=== PATIENT | female | born 1995 | race Caucasian/White ===

== ENCOUNTER 2016-05-05 22:57 | Emergency (ER) | payer OTHER ==
[~2016-05-05] VITALS: Ht 160 cm; Wt 49.9 kg
[2016-05-05 23:17] VITALS: BP 111/74
--- NOTE | 2016-05-06 01:12 | ED UPPER/LOWER EXTREMITY COMPL ---
History of Present Illness General Chief Complaint: Laceration Procedure Stated Complaint: RIGHT THUMB LAC Source: patient Exam Limitations: no limitations Vital Signs & Intake/Output Vital Signs & Intake/Output Vital Signs Date Time Temp Pulse Resp B/P Pulse O2 O2 Flow FiO2 Ox Delivery Rate 05/06 0126 98 Room Air 05/05 2317 98.7 99 15 111/74 100 Room Air ED Intake and Output 05/06 0000 05/05 1200 Intake Total Output Total Balance Patient 110 lb Weight Allergies Uncoded Allergies: Med Allergies N Triage Note: PT TO ED FOR SMALL LAC TO TOP OF R THUMB. REPORTS SHE WAS TRYING TO CLEAN A GLASS AND CUT HER THUMB, BLEEDING CONTROLLED ON ARRIVAL - UNSURE OF LAST TETANUS. Triage Nurses Notes Reviewed? yes Onset: Abrupt Duration: minute(s): Timing: single episode today Severity: mild Pain/Injury Location: Right: 1st finger. Method of Injury: incised Modifying Factors: Improves With: rest. Associated Symptoms: bleeding : No Patient currently breastfeeds: No HPI: 20 yo girl presents with right thumb laceration. She notes that she cut right thumb while washing dishes and a glass broke. "It really is bleeding a lot." She notes no other injury. She is able to move her thumb without problem. She flatly declines sutures. Past History Travel History Traveled to [place] past 21 day No Medical History Any Pertinent Medical History? see below for history Neurological: NONE EENT: NONE Cardiovascular: NONE Respiratory: NONE Gastrointestinal: NONE Hepatic: NONE Renal: NONE Musculoskeletal: NONE Psychiatric: NONE Endocrine: NONE Blood Disorders: NONE Cancer(s): NONE Surgical History Surgical History: none Psychosocial History What is your primary language Romanian Tobacco Use: Never used ETOH Use: denies use Illicit Drug Use: denies illicit drug use Family History Hx Contributory? No Review of Systems Review of Systems Constitutional: Reports: no symptoms. EENTM: Reports: no symptoms. Respiratory: Reports: no symptoms. Cardiovascular: Reports: no symptoms. Gastrointestinal/Abdominal: Reports: no symptoms. Genitourinary: Reports: no symptoms. Musculoskeletal: Reports: no symptoms. Skin: Reports: no symptoms. Neurological/Psychological: Reports: no symptoms. Hematologic/Endocrine: Reports: no symptoms. Immunological: Reports: no symptoms. All Other Systems: Reviewed and Negative Physical Exam Physical Exam General Appearance: well developed/nourished, mild distress Head: atraumatic Eyes: Bilateral: normal appearance. Ears, Nose, Throat: normal pharynx, normal ENT inspection, hearing grossly normal Neck: normal inspection, supple Cardiovascular/Respiratory: regular rate/rhythm Back: normal inspection Hand Right: 2 cm laceration, flap, with slowly oozing blood. Skin: intact, normal color, warm/dry Lymphatic: no anterior cervical iram Progress Differential Diagnosis: abrasion vs laceration Plan of Care: Pt declines sutures. right thumb 2cm flap laceration. Wound cleansed with 100cc of water.... dermabond and steri strips placed with excellent result... thumb placed in splint by MD. Departure Departure Disposition: HOME OR SELF CARE Condition: Stable Clinical Impression Primary Impression: Thumb laceration Referrals: BORIS STEVENS MD (PCP/Family) Departure Forms: Customer Survey General Discharge Information Comments tetanus given in ed.
== END 2016-05-06 01:28 ==
LOC: ERH 22:57
DX: S61.011A Laceration without foreign body of right thumb without damage to nail, initial encounter (principal); W25.XXXA Contact with sharp glass, initial encounter
CPT/HCPCS: 90714

== ENCOUNTER 2016-05-07 19:07 | Emergency (ER) | payer OTHER ==
[~2016-05-07] VITALS: Ht 160 cm; Wt 49.9 kg
[2016-05-07 19:11] VITALS: BP 117/75
--- NOTE | 2016-05-07 19:20 | ED HAND/WRIST INJURY COMPLAINT ---
History of Present Illness General Chief Complaint: Suture Removal/Wound Recheck Stated Complaint: WOUND CHECK, TOLD TO RETURN PER DR. HINES Source: patient Exam Limitations: no limitations Vital Signs & Intake/Output Vital Signs & Intake/Output Vital Signs Date Time Temp Pulse Resp B/P Pulse O2 O2 Flow FiO2 Ox Delivery Rate 05/07 1910 98.0 104 18 117/75 99 Room Air Allergies Coded Allergies: No Known Allergies (05/07/16) Reconcile Medications No Known Home Medications Triage Note: PT HERE TO SEE FOR WOUND CHECK TO R THUMB. VSS. Triage Nurses Notes Reviewed? yes Occurred: 2 DAYS AGO Duration: day(s): Timing: recent history Injury Environment: home Severity: mild Pain/Injury Location: Right: 1st finger. Context: incision : No Patient currently breastfeeds: No HPI: 20 yo woman presents for wound check of right thumb. She notes that she is doing well. The wound has been healing well. She continues to wear the splint. She notes that it is not red or swollen. She is otherwise well. Past History Travel History Traveled to [place] past 21 day No Medical History Any Pertinent Medical History? see below for history Neurological: NONE EENT: NONE Cardiovascular: NONE Respiratory: NONE Gastrointestinal: NONE Hepatic: NONE Renal: NONE Musculoskeletal: NONE Psychiatric: NONE Endocrine: NONE Blood Disorders: NONE Cancer(s): NONE Tetanus Vaccine: 05/06/16 Surgical History Surgical History: none Psychosocial History What is your primary language Marshallese Tobacco Use: Never used Family History Hx Contributory? No Review of Systems Review of Systems Constitutional: Reports: no symptoms. EENTM: Reports: no symptoms. Respiratory: Reports: no symptoms. Cardiovascular: Reports: no symptoms. GI: Reports: no symptoms. Genitourinary: Reports: no symptoms. Musculoskeletal: Reports: no symptoms. Skin: Reports: no symptoms. Neurological/Psychological: Reports: no symptoms. Hematologic/Endocrine: Reports: no symptoms. Immunologic/Allergic: Reports: no symptoms. All Other Systems: Reviewed and Negative Physical Exam Physical Exam General Appearance: well developed/nourished, mild distress Head: atraumatic Eyes: Bilateral: normal appearance. Ears, Nose, Throat: normal ENT inspection, hearing grossly normal Hand Left: normal inspection, normal range of motion Hand Right: 1st finger, right thumb with flap-type laceration, 2cm.... well approximated, dermabond intact. Progress Differential Diagnosis: laceration vs other Plan of Care: wound is healing well... she declined stitches 2 days ago. I placed small amount of dermabond and replaced loose steri strips to maintain wound integrity. dressing and splint placed by MD. Encouraged close follow up. Departure Departure Disposition: STILL A PATIENT Condition: Stable Clinical Impression Primary Impression: Thumb laceration Referrals: HILDA THOMPSON,BORIS (PCP/Family) Departure Forms: Customer Survey General Discharge Information Prescriptions: Current Visit Scripts No Known Home Medications
== END 2016-05-07 19:46 ==
LOC: ERH 19:07
DX: Z48.01 Encounter for change or removal of surgical wound dressing (principal)
CPT/HCPCS: 99281